=== PATIENT | female | born 1990 | race Caucasian/White ===

== ENCOUNTER 2021-06-19 10:35 | Emergency (ER) | payer OTHER, SELFPAY ==
--- NOTE | ~2021-06-19 | XR_ITS ---
EXAMINATION: XR shoulder LT min 2V INDICATION: Left shoulder pain TECHNIQUE: Four views of the left shoulder are submitted. COMPARISON: None FINDINGS: Normal alignment. No fracture. Glenohumeral and acromioclavicular joint spaces are normal. Soft tissues are unremarkable. IMPRESSION: 1. No acute osseous abnormality. Reviewed, dictated and finalized at location B.
[2021-06-19 10:44] VITALS: BP 150/105; PULSE 94; RESP 20; TEMP 36.7; O2SAT 100
[2021-06-19 11:10] VITALS: BP 150/105; PULSE 94; RESP 20; TEMP 36.7; O2SAT 100
--- NOTE | 2021-06-19 12:05 | ED.UPPEXIN ---
HPI - Extremity Injury (Upper) General Chief Complaint: Extremity Injury, Upper Stated Complaint: Pain, knot and burning down left Arm Time Seen by Provider: 06/19/21 11:15 Source: patient, RN notes reviewed and old records reviewed Mode of arrival: ambulatory Limitations: no limitations History of Present Illness HPI narrative: 31 year old female who presents to [facility] care with complaints of left shoulder pain anterior and posterior area with radiation into her left upper arm with sharp burning pain for the past 5 days.Patient has limitation of motion of left shoulder due to pain. Patient states that she seem to have increased pain at night when lying down. She reports that the day before pain started she was lifting heavy boxes of alcohol. Patient has strong pulses to her left arm, brisk capillary refill to nail beds of left hand with no tingling or numbness voiced to arm or left hand.Patient has been using ice, heat to her left shoulder, taking Naprosyn and applying Biofreeze to shoulder with no resolution of symptoms. MD complaint: injury to: left, shoulder and arm (upper arm) Related Data Home Medications Medication Instructions Recorded Confirmed lorazepam 1 mg PO DAILY PRN 06/19/21 06/19/21 oxcarbazepine 600 mg PO BID 06/19/21 06/19/21 sumatriptan succinate 50 mg PO ONCE 06/19/21 06/19/21 topiramate 100 mg PO BID 06/19/21 06/19/21 venlafaxine 37.5 mg PO BID 06/19/21 06/19/21 Allergies Allergy/AdvReac Type Severity Reaction Status Date / Time hydromorphone [From Dilaudid] Allergy Hives Verified 06/19/21 11:02 Review of Systems Review of Systems: CONSTITUTIONAL: Denies fever, chills, or sweats. EYES: Denies visual changes, redness, or discharge. ENT: Denies rhinorrhea, congestion, sore throat, or otalgia. CARDIOVASCULAR: Denies chest pain, palpitations, or edema. RESPIRATORY: Denies cough or dyspnea. GASTROINTESTINAL: Denies abdominal pain, nausea, vomiting, or diarrhea. GENITOURINARY: Denies dysuria or hematuria. SKIN: Denies rash or itching. MUSCULOSKELETAL: Denies back pain, positive for left shoulder pain radiating to upper arm or myalgia. NEUROLOGIC: Denies headache, numbness, or weakness. PSYCHIATRIC:Positive for history of anxiety or depression. All systems reviewed & are unremarkable except as noted in HPI and below PMFSH Past Medical History Medical History (Updated 06/21/21 @ 20:47 by Charis Akhtar NP) Epilepsy on daily medication, last seizure April 2021 Fracture of left upper extremity surgical repair for fracture of elbow and wrist Hx of migraines Leg fracture Surgical History Surgical History (Updated 06/21/21 @ 20:47 by Charis Akhtar NP) History of dilatation and curettage Family History Family History (Updated 06/21/21 @ 20:51 by Charis Akhtar NP) Grandparent Alzheimers disease Breast cancer Diabetes mellitus Heart disease Father Diabetes mellitus Hypertension Mother Hypertension Lupus (systemic lupus erythematosus) Social History Social History (Updated 06/21/21 @ 20:52 by Charis Akhtar NP) Smoking packs per day: 0.25 Smoking cigarettes per day: 5.0 Years smoked: 10 Smoking pack-years: 2.50 Smoking status: Current every day smoker Alcohol intake: current Alcohol use details: rare Substance use: never Living arrangements: with family Gender identity (if verbalized by the patient): Female Comments At time of signature agree with nursing documentation of past medical, surgical, social and family history. There is no relevant family history pertinent to presenting complaint. Exam Narrative: GENERAL: Well-appearing, well-nourished, and in no acute distress. HEAD: Normocephalic, atraumatic. EYES: PERRLA and EOMI. ENT: Nares clear, no rhinorrhea or epistaxis. Mucous membranes moist. NECK: Supple.no lymphadenopathy CHEST: Clear to auscultation. No respiratory distress.SAO2 100% on room air HEART: Regular rate and rhythm. No m
== END 2021-06-19 12:31 | disposition home or self-care (01) ==
PROVIDERS: Emergency Provider Registered Nurse; PCP Internal Medicine
DX: M25.512 Pain in left shoulder (principal); F17.210 Nicotine dependence, cigarettes, uncomplicated; G40.909 Epilepsy, unspecified, not intractable, without status epilepticus
CPT/HCPCS: 73030; 99213; G0463

== ENCOUNTER 2022-08-22 15:43 | Emergency (ER) | payer OTHER, SELFPAY ==
[2022-08-22 15:48] VITALS: BP 136/101; PULSE 81; RESP 16; TEMP 36.4; O2SAT 100
--- NOTE | 2022-08-22 16:21 | ED.ALLEREA ---
HPI - Allergic Reaction General Chief complaint: Allergic Reaction Stated complaint: Skin Problem Time Seen by Provider: 08/22/22 16:21 Source: patient Mode of arrival: ambulatory Limitations: no limitations History of Present Illness HPI narrative: 32-year-old female presented for complaint of rash and burning to her face after using a new new face cream last night. She endorses immediate tingling and burning sensation, and her face turned red. She immediately wshed her face with normal antibacterial soap. She endorses this morning waking with mild swelling, more redness and blisters. She has applied cool compresses and taking ibuprofen and Tylenol without relief. Also applied coconut oil today. She states she purchased the face cream at [employer]. Denies lip, tongue, throat swelling, itching, shortness of breath, or wheezing. Related Data Home Medications Medication Instructions Recorded Confirmed lorazepam 1 mg tablet 1 mg PO DAILY PRN Seizures 06/19/21 08/22/22 oxcarbazepine 600 mg tablet 600 mg PO BID 06/19/21 08/22/22 hydroxyzine HCl 25 mg tablet 25 mg PO TID PRN Anxiety 08/22/22 08/22/22 lisinopril 5 mg tablet 5 mg PO DAILY 08/22/22 08/22/22 metoclopramide HCl 5 mg tablet 5 mg PO BID PRN Nausea 08/22/22 08/22/22 propranolol 20 mg tablet 20 mg PO TID 08/22/22 08/22/22 ubrogepant 50 mg tablet (Ubrelvy) 50 mg PO DAILY PRN Migraine 08/22/22 08/22/22 Headache Allergies Allergy/AdvReac Type Severity Reaction Status Date / Time hydromorphone [From Dilaudid] Allergy Intermediate Hives Verified 08/22/22 16:06 Review of Systems Review of Systems: CONSTITUTIONAL: Denies body aches, fever, chills, or sweats. EYES: Denies visual changes, redness, or discharge. ENT: Denies rhinorrhea, congestion CARDIOVASCULAR: Denies chest pain, palpitations, or edema. RESPIRATORY: Denies cough or dyspnea. GASTROINTESTINAL: Denies abdominal pain, nausea, vomiting, or diarrhea. SKIN: reports face rash MUSCULOSKELETAL: Denies back pain, joint pain, or myalgia. NEUROLOGIC: Denies headache, numbness, tingling, or weakness. [facility] Past Medical History Medical History Epilepsy on daily medication, last seizure April 2021 Fracture of left upper extremity surgical repair for fracture of elbow and wrist Hx of migraines Leg fracture Surgical History Surgical History History of dilatation and curettage Family History Family History Grandparent Alzheimers disease Breast cancer Diabetes mellitus Heart disease Father Diabetes mellitus Hypertension Mother Hypertension Lupus (systemic lupus erythematosus) Social History Social History Smoking packs per day: 0.25 Smoking cigarettes per day: 5.0 Years smoked: 10 Smoking pack-years: 2.50 Smoking status: Current every day smoker Alcohol intake: current Alcohol use details: rare Substance use: never Gender identity (if verbalized by the patient): Female Comments At time of signature, I have reviewed and agree with nursing past medical, surgical, social and family history unless otherwise noted. Please see nursing chart for further information. There is no relevant family history pertinent to the presenting complaint Exam Narrative: GENERAL: Well-appearing HEAD: Normocephalic, atraumatic. EYES: conjunctivae clear, and EOMI. ENT: Mucous membranes moist. Oropharynx without edema, erythema or lesions. NECK: Supple. No lymphadenopathy CHEST: Clear to auscultation. HEART: Regular rate and rhythm. SKIN: Warm, dry. face with erythematous patches and scattered pinpoint vesicles with surrounding erythema, no drainage, no lip/tongue involvement NEURO: Alert and oriented x3. Course Course Emergency Course: Patient is awar
[2022-08-22] MEDS: predniSONE 20 MG TABLET 60 MG PO (16:42)
== END 2022-08-22 16:57 | disposition home or self-care (01) ==
PROVIDERS: Emergency Provider Nurse Practitioner Family; PCP Internal Medicine
DX: L30.9 Dermatitis, unspecified (principal); G40.909 Epilepsy, unspecified, not intractable, without status epilepticus; F17.210 Nicotine dependence, cigarettes, uncomplicated
CPT/HCPCS: 99213; G0463; J7512

== ENCOUNTER 2023-02-21 12:47 | Emergency (ER) | payer OTHER, SELFPAY ==
[2023-02-21 12:55] VITALS: BP 122/90; PULSE 80; RESP 16; TEMP 36.1; O2SAT 97
--- NOTE | 2023-02-21 13:10 | ED.DENTAL ---
HPI - Dental/Oral General Chief complaint: Dental/Oral Stated complaint: Toothace/Facial Swelling Time Seen by Provider: 02/21/23 13:10 History of Present Illness HPI Narrative: PATIENT PRESENTS WITH PAIN TO HER LEFT LOWER TOOTH SLIGHT FACIAL SWELLING NO TROUBLE SWALLOWING NO DROOLING. PATIENT DOES HAVE AN APPOINT WITH A DENTIST IN 2 WEEKS FOR A ROOT CANAL. Related Data Home Medications Medication Instructions Recorded Confirmed lorazepam 1 mg tablet 1 mg PO DAILY PRN Seizures 06/19/21 02/21/23 oxcarbazepine 600 mg tablet 600 mg PO BID 06/19/21 02/21/23 hydroxyzine HCl 25 mg tablet 25 mg PO TID PRN Anxiety 08/22/22 02/21/23 lisinopril 5 mg tablet 5 mg PO DAILY 08/22/22 02/21/23 propranolol 20 mg tablet 20 mg PO TID 08/22/22 02/21/23 erenumab-aooe 70 mg/mL 70 mg subcut MONTHLY 02/21/23 02/21/23 subcutaneous auto-injector (Aimovig Autoinjector) naproxen 500 mg tablet 500 mg PO BID PRN Pain 02/21/23 02/21/23 Allergies Allergy/AdvReac Type Severity Reaction Status Date / Time hydromorphone [From Dilaudid] Allergy Intermediate Hives Verified 02/21/23 13:02 Review of Systems Review of Systems: CONSTITUTIONAL: DENIES FEVER, CHILLS, OR SWEATS. EYES: DENIES VISUAL CHANGES, REDNESS, OR DISCHARGE. ENT: DENIES RHINORRHEA, CONGESTION, SORE THROAT, OR OTALGIA. CARDIOVASCULAR: DENIES CHEST PAIN, PALPITATIONS, OR EDEMA. RESPIRATORY: DENIES COUGH OR DYSPNEA. GASTROINTESTINAL: DENIES ABDOMINAL PAIN, NAUSEA, VOMITING, OR DIARRHEA. GENITOURINARY: DENIES DYSURIA OR HEMATURIA. SKIN: DENIES RASH OR ITCHING. MUSCULOSKELETAL: DENIES BACK PAIN, JOINT PAIN, OR MYALGIA. NEUROLOGIC: DENIES HEADACHE, NUMBNESS, OR WEAKNESS. PSYCHIATRIC: DENIES ANXIETY OR DEPRESSION. [facility] Past Medical History Medical History Epilepsy on daily medication, last seizure April 2021 Fracture of left upper extremity surgical repair for fracture of elbow and wrist Hx of migraines Leg fracture Surgical History Surgical History History of dilatation and curettage Family History Family History Grandparent Alzheimers disease Breast cancer Diabetes mellitus Heart disease Father Diabetes mellitus Hypertension Mother Hypertension Lupus (systemic lupus erythematosus) Social History Social History Smoking packs per day: 0.25 Smoking cigarettes per day: 5.0 Years smoked: 10 Smoking pack-years: 2.50 Smoking status: Current every day smoker Alcohol intake: current Alcohol use details: rare Substance use: never Living arrangements: with family Gender identity (if verbalized by the patient): Female Comments AT TIME OF SIGNATURE, AGREE WITH NURSING PAST MEDICAL, SURGICAL, SOCIAL AND FAMILY HISTORY. THERE IS NO RELEVANT FAMILY HISTORY PERTINENT TO THE PRESENTING COMPLAINT Exam Narrative: GENERAL: WELL-APPEARING, WELL-NOURISHED, AND IN NO ACUTE DISTRESS. HEAD: NORMOCEPHALIC, ATRAUMATIC. EYES: PERRLA AND EOMI. ENT: NARES CLEAR, NO RHINORRHEA OR EPISTAXIS. MUCOUS MEMBRANES MOIST. NO EMELY APICAL SWELLING, TOOTH TENDER TO PALPATION. NO FACIAL SWELLING. NO TRISMUS. ABLE TO OPEN MOUTH FULLY. NO NECK SWELLING OR RAMU'S ANGINA. NO ABSCESS TO BE DRAINED. NO DROOLING, TRISMUS, FACIAL ASYMMETRY OR SIGNIFICANT NECK SWELLING CHEST: CLEAR TO AUSCULTATION. NO RESPIRATORY DISTRESS. HEART: REGULAR RATE AND RHYTHM. NO MURMUR HEARD. NORMAL PERIPHERAL PULSES. ABDOMEN: SOFT, NONTENDER, NONDISTENDED, NORMAL ACTIVE BOWEL SOUNDS. EXTREMITIES: NORMAL RANGE OF MOTION. NO EDEMA. SKIN: WARM, DRY, NO RASH. NEURO: NO FOCAL DEFICITS. ALERT AND ORIENTED X3. RENNY COMA SCALE EYE OPENING: SPONTANEOUS 4 RENNY COMA SCALE MOTOR: OBEYS COMMANDS 6 RENNY COMA SCALE VERBAL: ORIENTED 5 RENNY COMA SCALE TOTAL 15 Course Course Klaudia
== END 2023-02-21 13:15 | disposition home or self-care (01) ==
PROVIDERS: Emergency Provider Nurse Practitioner Family; PCP Internal Medicine
DX: K02.9 Dental caries, unspecified (principal); K04.7 Periapical abscess without sinus; F17.210 Nicotine dependence, cigarettes, uncomplicated; Z79.1 Long term (current) use of non-steroidal anti-inflammatories (NSAID)
CPT/HCPCS: 99213; G0463